=== PATIENT | male | born 1995 | race Caucasian/White ===

== ENCOUNTER → 2017-04-01 | Outpatient (CLI) | payer OTHER | LOC: LAB 01:30 | DX: Z02.83 Encounter for blood-alcohol and blood-drug test (principal) | CPT/HCPCS: 36415 ==

== ENCOUNTER 2021-04-25 00:20 | Emergency (ER) | payer OTHER ==
[2021-04-25 01:59] LABS: HEMOGLOBIN 17.2 gm/dl (14.0-17.5); RED BLOOD COUNT 5.33 M/UL (4.20-5.50); WHITE BLOOD COUNT 10.5 K/UL (4.5-11.0)
[2021-04-25 02:21] LABS: BUN/CREATININE RATIO 15 (0-10)
[2021-04-25] MEDS ORDERED: IBUPROFEN600 MG PO (03:46)
[2021-04-25] MEDS ORDERED: PEPCID20 MG PO (03:46)
[2021-04-25] MEDS ORDERED: ZOFRAN ODT 4 MG4 MG SL (03:46)
== END 2021-04-25 03:58 | disposition home or self-care (01) ==
LOC: ER1 00:20
PROVIDERS: Emergency Medicine
DX: B19.20 Unspecified viral hepatitis C without hepatic coma (principal); F17.200 Nicotine dependence, unspecified, uncomplicated; Z20.822 Contact with and (suspected) exposure to COVID-19
CPT/HCPCS: 0240U; 80053; 80307; 81001; 83605; 83690; 85025; 87040; 96374; 96375; 99284; J1885; J2270; J2405; Q9967

== ENCOUNTER → 2021-04-27 | Outpatient (CLI) | payer OTHER ==
[~2021-04-27] MED LIST: IBUPROFEN600 MG PO; PEPCID20 MG PO; ZOFRAN ODT 4 MG4 MG SL
== END ==
LOC: US 08:00
DX: R10.9 Unspecified abdominal pain (principal)
CPT/HCPCS: 76705

== ENCOUNTER 2021-12-07 13:34 | Emergency (ER) | payer OTHER ==
[2021-12-10 14:11] LABS: TREPONEMA PALLIDUM ANTIBODIES Non Reactive (Non Reactive)
[2021-12-10 17:12] LABS: T PALLIDUM AB (FTA-AB) Non Reactive (Non Reactive)
== END 2021-12-07 16:42 | disposition home or self-care (01) ==
LOC: ER1 13:34
PROVIDERS: Emergency Medicine
DX: S93.402A Sprain of unspecified ligament of left ankle, initial encounter (principal); L23.7 Allergic contact dermatitis due to plants, except food; F17.200 Nicotine dependence, unspecified, uncomplicated; W19.XXXA Unspecified fall, initial encounter
CPT/HCPCS: 73610; 73630; 86780; 96372; 99283; J0561

== ENCOUNTER → 2022-03-14 | Outpatient (CLI) | payer OTHER | LOC: EXRD 09:30 | DX: B18.2 Chronic viral hepatitis C (principal) | CPT/HCPCS: 76700 ==

== ENCOUNTER 2022-05-26 23:37 | Emergency (ER) | payer OTHER ==
[2022-05-27] MEDS ORDERED: PEPCID40 MG PO (00:51)
[2022-05-27] MEDS ORDERED: BENADRYL25 MG PO (00:51)
[2022-05-27] MEDS ORDERED: MEDROL DOSEPAK 24 MG PO (00:51)
== END 2022-05-27 00:59 | disposition home or self-care (01) ==
LOC: ER1 23:37
DX: L50.1 Idiopathic urticaria (principal); F17.210 Nicotine dependence, cigarettes, uncomplicated
CPT/HCPCS: 96365; 96375; 99282; J2930